=== PATIENT | female | born 1995 | race African-American/Black ===

== ENCOUNTER 2020-09-18 13:04 | Emergency (ER) | payer MEDICAID, OTHER ==
[~2020-09-18] VITALS: Ht 152.4 cm; Wt 89.4 kg
[~2020-09-18 13:04] MED LIST: ONDA4TAB10 SL
--- NOTE | 2020-09-18 13:10 | PHYS DOC ---
Past History Past Medical History: No Pertinent History Past Surgical History: No Surgical History Smoking: Non-smoker Alcohol Use: None Drug Use: None Adult General HPI HPI Patient is a 25-year-old female presents to the emergency room today stating that she took a test approximately a week and a half ago that tested positive patient states that her last menstrual period was 07/26/2020, reports that she noticed some nausea in the mornings when she first wakes up that lasts approximately 10 minutes then resolves. Patient denies any nausea or abdominal pain. Patient denies any urinary tract infection symptoms, denies STI concerns, however reports that she has noticed a clear malodorous vaginal discharge after wiping with toilet paper after urination for the past week. Patient denies seeing any vaginal bleeding, denies pelvic pain. Patient states that she has been once before had a without complications and has a 4-year-old daughter. Patient does states she worries about having bacterial vaginosis. Patient reports being a cigarette smoker, denies any drug allergies, denies taking any prescription medications at home. Patient denies any recent fever or chills, cough, shortness of breath, chest pains, or chest palpitations. Patient denies any numbness or tingling to her extremities, patient denies any other physical complaints or physical concerns at this time. Patient denies being recently exposed to the COVID-19 virus does not wish to be tested today. Review of Systems Review of Systems 14 body systems of review of systems have been reviewed. See HPI for pertinent positives and negative responses, otherwise all other systems are negative, no npertinent or noncontributory. Allergies Allergies Allergies Coded Allergies Type Severity Reaction Last Updated Verified No Known Drug Allergies 07/15/15 No Physical Exam Physical Exam Constitutional: Well developed, well nourished, no acute distress, non-toxic appearance. HENT: Normocephalic, atraumatic, bilateral external ears normal, oropharynx moist, no oral exudates, nose normal. Eyes: PERRLA, EOMI, conjunctiva normal, no discharge. Neck: Normal range of motion, no tenderness, supple, no stridor. Cardiovascular:Heart rate regular rhythm, no murmur Lungs & Thorax: Bilateral breath sounds clear to auscultation Abdomen: Bowel sounds normal, soft, no tenderness, no masses, no pulsatile masses. Skin: Warm, dry, no erythema, no rash. Back: No tenderness, no CVA tenderness. Extremities: No tenderness, no cyanosis, no clubbing, ROM intact, no edema. Neurologic: Alert and oriented X 3, normal motor function, normal sensory function, no focal deficits noted. Psychologic: Affect normal, judgement normal, mood normal. : Pelvic exam with female nurse assistance, external vagina and adjacent structures without rashes, lesions, excoriations, not erythematous, within normal limits. Speculum exam was within normal limits, anterior vagina nonerythematous, no lesions, scant white thick discharge near cervix, wet prep, GC chlamydia, vaginitis swab cultures obtained, the cervical os is closed, no b leeding noted. Bimanual exam did not elicit any cervical motion tenderness, no adnexal tenderness. Current Patient Data Vital Signs Patient's vital signs during physical exam temp 93 oral, pulse rate 68 bpm, oxygen saturation 100%, respirations 16 and unlabored, NIBP 119/70. Lab Results Laboratory Tests Test 09/18/20 13:13 09/18/20 13:22 Urine Collection Type Unknown Urine Color Yellow Urine Clarity Hazy Urine pH 7.5 Urine Specific [place] 1.020 Urine Protein Neg Urine Glucose (UA) Neg mg/dL Urine Ketones (Stick) Neg mg/dL Urine Blood Neg Urine Nitrite Neg Urine Bilirubin Neg Urine Urobilinogen Dipstick 1.0 mg/dL Urine Leukocyte Esterase Trace Urine RBC 1-2 /HPF Urine WBC Occ /HPF Urine Squamous Epithelial Cells Mod /LPF Urine Bacteria Few /HPF Bedside Urine HCG, Qualitative hcg positive Laboratory Tests Test 09/18/20 13:22 Bedside Urine HCG, Qualitative hcg positive EKG EKG [] Radiology/Procedures Radiology/Procedures [] Heart Score Risk Factors: Risk Factors: DM, Current or recent (<one month) smoker, HTN, HLP, family history of CAD, obesity. Risk Scores: Risk Factors: DM, Current or recent (<one month) smoker, HTN, HLP, family history of CAD, obesity. Course & Med Decision Making Course & Med Decision Making Pertinent Labs and Imaging studies reviewed. (See chart for details) 25-year-old female vital signs stable reports positive home test. Patient has positive urine test today in the emergency department, pelvic exam performed cultures obtained, nonconcerning for STIs, urine assay, wet prep, vaginitis studies pending. Urine assay results concerning for simple cystitis, pelvic exam was nonconcerning for STIs, cultures obtained resulted did not yeast and clue cells present concerning for bacterial vaginosis and vaginal yeast infection. Discussed findings with patient will start on Diclegis for nausea, vitamin, Keflex for UTI, Monistat 7-day vaginal application, 1 time vaginal application dose Nuvessa. Patient gave verbal understanding of medication use, follow-up with OB soon, follow-up with primary care physician soon, return to ER precautions and concerns, patient had no further questions or concerns, patient discharged home without incident Dragon Disclaimer Dragon Disclaimer This electronic medical record was generated, in whole or in part, using a voice recognition dictation system. Departure Departure: Impression: Primary Impression: Additional Impressions: Nausea Vulvovaginal candidiasis Bacterial vaginosis in UTI (urinary tract infection) Disposition: 01 DC HOME SELF CARE/HOMELESS Condition: GOOD Referrals: PCP,NO (PCP) Patient Instructions: ABCs of , Bacterial Vaginosis Additional Instructions: You are seen today for , you are just over 7 weeks , I am starting you on a vitamin please take 1 daily and see your OB spec ialist soon, you are being treated for a vaginal yeast infection and bacterial vaginosis, you have been given prescriptions for both, please use as directed, I have given you an antinausea medicine called Diclegis, please use as directed. Please follow-up with your regular physician soon, return to the emergency department for worsening symptoms or further concerns. EMERGENCY DEPARTMENT GENERAL DISCHARGE INSTRUCTIONS Thank you for coming to [facility] (ED) today and trusting us with you care. We trust that you had a positivie experience in our Emergency Department. If you wish to speak to the department management, you may call the director at [phone]. YOUR FOLLOW UP INSTRUCTIONS ARE FOLLOWS: 1. Do you have a private Doctor? If you do not have a private doctor, please ask for a resource list of physicians or clinics that may be able to assist you with follow up care. 2. The Emergency Physician has interpreted your x-rays. The X-Ray specialist will also review them. If there is a change in the findings, you will be notified in 48 hours when at all possible. 3. A lab test or culture has been done, your results will be reviewed and you will be notified if you need a change in treatment. ADDITIONAL INSTRUCTIONS AND INFORMATION: 1. Your care today has been supervised by a physician who is specially trained in emergency care. Many problems require more than one evaluation for a complete diagnosis and treatment. We recommend that you schedule your follow up appointment as recommended to ensure complete treatment of you illness or injury. If you are unable to obtain follow up care and continue to have a problem, or if your condition worsens, we recommend that you return to the ED. 2. We are not able to safely determine your condition over the phone nor are we able to give sound medical advice over the phone. For these safety reasons, if you call for medical advice we will ask you to come to the ED for further evaluation. 3. If you have any questions regarding these discharge instructions please call the ED at [phone]. SAFETY INFORMATION: In the interest of safety, wellness, and injury prevention; we encourage you to wear your sealbelt, if you smoke; quite smoking, and we encourage family to use a protective helmet for bicycling and other sporting events that present an increased risk for head injury. IF YOUR SYMPTOMS WORSEN OR NEW SYMPTOMS DEVELOP, OR YOU HAVE CONCERNS ABOUT YOUR CONDITION; OR IF YOUR CONDITION WORSENS WHILE YOU ARE WAITING FOR YOUR FOLLOW UP APPOINTMENT; EITHER CONTACT YOUR PRIMARY CARE DOCTOR, THE PHYSICIAN WHOSE NAME AND NUMBER YOU WERE GIVEN, OR RETURN TO THE ED IMMEDIATELY. Scripts Cephalexin (KEFLEX) 500 Mg Capsule 1 CAP PO TID for URINARY TRACT INFECTION for 7 Days, #21 CAP 0 Refills Prov: ANNI DEVINE MUCK FARMER 09/18/20 Metronidazole (Nuvessa) 5 Gm Gel.w.appl 5 GM VG 1X for bacterial vaginosis for 1 Day, #1 EACH 0 Refills ONE APPLICATION VAGINALLY AT BEDTIME Prov: ANNI DEVINE MUCK FARMER 09/18/20 Miconazole Nitrate (MONISTAT 7) 45 Gm Cream.appl 1 APPFUL VG QHS for vaginal yeast infection for 7 Days, #45 GM 0 Refills Prov: ANNI DEVINE MUCK FARMER 25/20 Doxylamine/Pyridoxine Hcl (PAULA DR 10-10 MG TABLET) 1 Each Tablet.dr 2 TAB PO QHS for NAUSEA DURING for 24 Days, #48 TAB 0 Refills 2 TABS BY MOUTH AT BEDTIME; IF SYMPTOMS PERSIST AFTER 2 DAYS, INCREASE TO 1 TAB IN MORNING AND 2 TABS AT NIGHT; MAY INCREASE TO 1 TAB IN MORNING, 1 TAB IN MID-AFTERNOON, AND 2 TAB AT NIGHT FOR A MAX OF 4 TABS PER DAY. TAKE ON EMPTY STOMACH; DO NOT CUT/CRUSH/CHEW TAB. Prov: ANNI DEVINE APRN 09/18/20 Vit #76/Iron,Carb/Fa (PRENATABS RX TABLET) 1 Each Tablet 1 TAB PO DAILY for for 30 Days, #30 TAB 0 Refills Prov: ANNI DEVINE APRN 09/18/20 Problem Qualifiers Primary Impression: Weeks of gestation: less than 8 weeks Qualified Codes: Z3A.01 - Less than 8 weeks gestation of Additional Impressions: UTI (urinary tract infection) Urinary tract infection type: acute cystitis Hematuria presence: without hematuria Qualified Codes: N30.00 - Acute cystitis without hematuria ANNI DEVINE APRN Sep 18, 2020 13:10
[2020-09-18 13:15] VITALS: BP 119/70
[2020-09-18 13:47] LABS: BILIRUBIN,URINE NEG (NEG); CLARITY,URINE HAZY; COLOR,URINE YELLOW; GLUCOSE,URINE NEG (NEG); NITRITE,URINE NEG (NEG)
[2020-09-18 13:48] LABS: BACTERIA,URINE FEW /HPF (0-FEW); SQUAMOUS EPITHELIAL CELL,UR MOD /LPF; WBC,URINE OCC /HPF (0-4)
[2020-09-18] MEDS ORDERED: PREN-2 PO (13:58)
[2020-09-18] MEDS ORDERED: DOXY1TAB3 PO (13:58)
[2020-09-18] MEDS ORDERED: [UNRECOGNIZED DRUG - CODE] VG (15:27)
[2020-09-18] MEDS ORDERED: MICO45CR41 VG (15:27)
[2020-09-18] MEDS ORDERED: CEPH-264 PO (16:21)
[2020-09-21 21:08] LABS: CHLAMYDIA PROBE Negative (Negative)
== END 2020-09-18 15:40 | disposition home or self-care (01) ==
LOC: ER 13:04
DX: O23.41 Unspecified infection of urinary tract in pregnancy, first trimester (principal); O23.591 Infection of other part of genital tract in pregnancy, first trimester; O98.811 Other maternal infectious and parasitic diseases complicating pregnancy, first trimester; B37.3 Candidiasis of vulva and vagina; R11.0 Nausea; Z3A.01 Less than 8 weeks gestation of pregnancy
CPT/HCPCS: 36415; 81001; 81025; 87086; 87480; 87491; 87510; 87591; 87660; 99284; Q0111

== ENCOUNTER 2020-11-12 16:44 | Emergency (ER) | payer OTHER ==
[~2020-11-12] VITALS: Ht 152.4 cm; Wt 97.0 kg
[~2020-11-12 16:44] MED LIST changes: +CEPH-264 PO; +DOXY1TAB3 PO; +MICO45CR41 VG; +PREN-2 PO; +[UNRECOGNIZED DRUG - CODE] VG
--- NOTE | 2020-11-12 18:01 | PHYS DOC ---
Past History Past Medical History: No Pertinent History (BRANDIN MERCADO MD) Past Medical History: Hypertension (JONNY BLACKWOOD MD) Past Surgical History: (BRANDIN MERCADO MD) Smoking: Non-smoker Alcohol Use: None Drug Use: None (BRANDIN MERCADO MD) General Adult EDM: Chief Complaint: MULTIPLE COMPLAINTS HPI: HPI: Patient is a 25-year-old G2, P1 at approximately 16 weeks gestational age by LMP and 14-week sonogram. Patient is concerned about her blood pressure, checked it a few days ago and her systolic blood pressure was 138. Denies any history of hypertension prior to pregnancies or with last . Also complaining of frontal headache and congestion, also loss of taste and smell since yesterday. She denies any vision changes, vomiting, diarrhea, lower extremity edema. No changes with urination. Denies any skin rashes or itching. Did not get her flu vaccine this year. (BRANDIN MERCADO MD) Review of Systems: Review of Systems: All other systems within normal limits except for as noted in the HPI (BRANDIN MERCADO MD) Allergies: Allergies: Allergies Coded Allergies Type Severity Reaction Last Updated Verified No Known Drug Allergies 07/15/15 No (BRANDIN MERCADO MD) Physical Exam: PE: Constitutional: Well developed, well nourished, no acute distress, non-toxic appearance. [] HENT: Normocephalic, atraumatic, bilateral external ears normal, nose normal. [] Eyes: PERRLA, conjunctiva normal, no discharge. [] Neck: No rigidity, supple, no stridor. [] Cardiovascular: Regular rate and rhythm, no murmurs or gallops, brisk cap refill, symmetric radial pulses [] Lungs & Thorax: Non labored symmetric respirations, no tachypnea or respiratory distress. No wheezes or rhonchi [] Abdomen: Soft, nondistended. Skin: Warm, dry, no erythema, no rash. [] Back: Unremarkable Extremities: No deformities, range of motion grossly intact, no lower extremity edema [] Neurologic: Alert and oriented X 3, no focal deficits noted. [] Psychologic: Affect normal, judgement normal, mood normal. [] (BRANDIN MERCADO MD) Current Patient Data: Vital Signs: Vital Signs Date Time Temp Pulse Resp B/P (MAP) Pulse Ox O2 Delivery O2 Flow Rate FiO2 11/12/20 17:20 94 16 123/63 (83) 11/12/20 17:14 98.0 98 Room Air (BRANDIN MERCADO MD) EKG: EKG: [] (BRANDIN MERCADO MD) Radiology/Procedures: Radiology/Procedures: [] (BRANDIN MERCADO MD) Heart Score: Risk Factors: Risk Factors: DM, Current or recent (<one month) smoker, HTN, HLP, family history of CAD, obesity. Risk Scores: Score 0 - 3: 2.5% MACE over next 6 weeks - Discharge Home Score 4 - 6: 20.3% MACE over next 6 weeks - Admit for Clinical Observation Score 7 - 10: 72.7% MACE over next 6 weeks - Early Invasive Strategies (BRANDIN MERCADO MD) Course & Med Decision Making: Course & Med Decision Making Pending labs and work-up at shift change, care transition to Dr. Blackwood [] (BRANIDN MERCADO MD) Course & Med Decision Making See Dr. Mercado chart for details/ Pt. to follow up with primary. Return if any concerns. Tylenol and ibuprofen as needed for discomfort. May take Zofran 8 mg up to 4 times a day. Reactive vomiting when on a clear fluid diet. No solids or milk products. Push clear fluids. Follow with Site Superintendent, ob. Self isolate until COVID results known. Impression; 1. Viral syndrome. (JONNY BLACKWOOD MD) Dragon Disclaimer: Dragon Disclaimer: This electronic medical record was generated, in whole or in part, using a voice recognition dictation system. (BRANDIN MERCADO MD) Departure Departure: Referrals: PCP,NO (PCP) Scripts Ondansetron Hcl (ZOFRAN) 4 Mg Tablet 8 MG PO QIDPRN PRN for NAUSEA/VOMITING, #30 TAB Prov: JONNY BLACKWOOD MD 11/12/20 Dragon Disclaimer This chart was dictated in whole or in part using Voice Recognition software in a busy, high-work load, and often noisy Emergency Department environment. It may contain unintended and wholly unrecognized errors or omissions. (JONNY BLACKWOOD MD) BRANDIN MERCADO MD Nov 12, 2020 18:01 JONNY BLACKWOOD MD Nov 13, 2020 06:37
[2020-11-12 18:18] LABS: BASO % 0 % (0-3); EOS # 0.1 x10^3/uL (0.0-0.7); EOS % 1 % (0-3); HEMATOCRIT 37.8 % (36.0-47.0); HEMOGLOBIN 11.8 g/dL (12.0-15.5); LYMPH # 1.9 x10^3/uL (1.0-4.8); LYMPH % 22 % (24-48); MEAN CORPUSCULAR HEMOGLOBIN 23 pg (25-35); MEAN CORPUSCULAR HGB CONC 31 g/dL (31-37); MEAN CORPUSCULAR VOLUME 73 fL (79-100); MONO # 0.6 x10^3/uL (0.0-1.1); MONO % 7 % (0-9); NEUT # 6.2 x10^3uL (1.8-7.7); NEUT % 71 % (31-73); PLATELET COUNT 216 x10^3/uL (140-400); RED BLOOD COUNT 5.17 x10^6/uL (3.50-5.40); RED CELL DISTRIBUTION WIDTH 16.3 % (11.5-14.5); WHITE BLOOD COUNT 8.8 x10^3/uL (4.0-11.0)
[2020-11-12 18:39] LABS: HYPOCHROMIA MOD; MICROCYTOSIS SLIGHT; PLT ESTIMATE ADEQUATE (ADEQUATE)
[2020-11-12 18:41] LABS: POIKILOCYTOSIS SLIGHT
[2020-11-12] MEDS ORDERED: ONDANSETRON PF 4 MG/2 ML VIAL. ONE (18:42)
[2020-11-12 19:17] LABS: ANION GAP 8 (6-14); BLOOD UREA NITROGEN 11 mg/dL (7-20); BUN/CREATININE RATIO 22 (6-20); CALCIUM 8.9 mg/dL (8.5-10.1); CARBON DIOXIDE 26 mmol/L (21-32); CHLORIDE 104 mmol/L (98-107); CREATININE 0.5 mg/dL (0.6-1.0); GFR 180.5; GLUCOSE 75 mg/dL (70-99); SODIUM 138 mmol/L (136-145)
[2020-11-12 19:25] LABS: ALBUMIN 2.9 g/dL (3.4-5.0); ALBUMIN/GLOBULIN RATIO 0.7 (1.0-1.7); ALK PHOS 78 U/L (46-116); ALT (SGPT) 16 U/L (14-59); AST (SGOT) 19 U/L (15-37); MAGNESIUM 1.8 mg/dL (1.8-2.4); TOTAL BILIRUBIN < 0.1 mg/dL (0.2-1.0)
[2020-11-12 19:41] LABS: BILIRUBIN,URINE NEG (NEG); CLARITY,URINE CLEAR; COLOR,URINE YELLOW; GLUCOSE,URINE NEG (NEG); NITRITE,URINE NEG (NEG); RBC,URINE OCC /HPF (0-2); UROBILINOGEN,URINE 0.2 mg/dL (0.2 mg/dL)
[2020-11-12 19:42] LABS: BACTERIA,URINE FEW /HPF (0-FEW); SQUAMOUS EPITHELIAL CELL,UR FEW /LPF; WBC,URINE OCC /HPF (0-4)
[2020-11-12] MEDS ORDERED: ONDA4TAB7 PO (20:54)
[2020-11-12 21:13] VITALS: BP 114/65
--- NOTE | 2020-11-16 11:31 | NUR ---
IP: attempt to notify patient of COVID result, phone message states call cannot be completed because there are restrictions on the line. Will send letter.
== END 2020-11-12 21:13 | disposition home or self-care (01) ==
LOC: ER 16:44
DX: O98.512 Other viral diseases complicating pregnancy, second trimester (principal); U07.1 COVID-19; B34.9 Viral infection, unspecified; R51.9 Headache, unspecified; R09.81 Nasal congestion; R43.9 Unspecified disturbances of smell and taste; I10 Essential (primary) hypertension; Z98.890 Other specified postprocedural states; Z3A.16 16 weeks gestation of pregnancy
CPT/HCPCS: 36415; 80053; 81001; 83735; 84443; 85025; 99283; C9803; U0003